=== PATIENT | female | born 1980 | race Caucasian/White ===

== ENCOUNTER 2017-01-27 16:39 | Inpatient (IN) | payer SELFPAY ==
[~2017-01-27] VITALS: Ht 121.9 cm; Wt 82.9 kg
[2017-01-27 17:54] LABS: Basophils # (auto) 0 uL; Basophils % (auto) 0.6 % (0.0-2.0); CONDITION Y; Eosinophils # (auto) 0 uL; Eosinophils % (auto) 0.4 % (0.0-7.0); Hematocrit 41.9 % (36.0-46.0); Hemoglobin 14.4 g/dL (12.2-16.2); Lymphocytes # (auto) 2.6 uL; Lymphocytes % (auto) 36.1 % (10.0-50.0); Mean Corpuscular Hemoglobin 33.8 pg (28.0-32.0); Mean Corpuscular Hgb Conc. 34.2 g/dL (32.0-36.0); Mean Corpuscular Volume 98.8 fL (80.0-100.0); Mean Platelet Volume 10.3 fL (7.4-10.4); Monocytes # (auto) 0.7 uL; Monocytes % (auto) 10.1 % (0.0-12.0); Neutrophils # (auto) 3.8 uL; Neutrophils % (auto) 52.8 % (37.0-80.0); Platelet Count (auto) 254 10^3/uL (140-450); Red Cell Distribution Width 13.1 % (11.6-16.0); White Blood Cell 7.2 10^3/uL (4.4-10.8)
[2017-01-27 18:03] LABS: Acetaminophen < 2.0 ug/mL (10-30); Salicylate < 1.7 mg/dL (2.8-20.0)
[2017-01-27 18:27] LABS: Albumin 4.3 g/dL (3.4-5.0); Alkaline Phosphatase 60 U/L (45-117); Anion Gap 12 (5-15); Aspartate Aminotransferase 16 U/L (15-37); BUN/Creatinine Ratio 17.1; Bilirubin, Total 0.9 mg/dL (0.2-1.0); Blood Urea Nitrogen 12 mg/dL (7-18); Calcium 9.5 mg/dL (8.5-10.1); Carbon Dioxide 22 mmol/L (21-32); Chloride 104 mmol/L (98-107); GFR African American 121 mL/min; GFR Non-African American 100 mL/min; Glucose 110 mg/dL (74-106); Magnesium 2.6 mg/dL (1.6-2.6); Potassium 3.3 mmol/L (3.5-5.1); Sodium 138 mmol/L (136-145); Total Protein 7.7 g/dL (6.4-8.2)
[2017-01-27] MEDS ORDERED: LORazepam 0.5 MG TAB PO PRN (22:30)
[2017-01-27] MEDS ORDERED: MORPHINE SULF INJ 2 MG/ML SYRINGE 1ML IV PRN (22:30)
[2017-01-27] MEDS ORDERED: ONDANSETRON HCL 4 MG/2 ML VIAL IV PRN (22:30)
[2017-01-27] MEDS ORDERED: ACETAMINOPHEN 500 MG TAB PO PRN (22:30)
[2017-01-27] MEDS ORDERED: HYDROcodone-ACET 5/325MG TAB PO PRN (22:30)
[2017-01-28 05:30] VITALS: BP 107/69
[2017-01-28 06:34] LABS: Basophils # (auto) 0 uL; Basophils % (auto) 0.8 % (0.0-2.0); CONDITION Y; Eosinophils # (auto) 0 uL; Eosinophils % (auto) 0.7 % (0.0-7.0); Hematocrit 38.1 % (36.0-46.0); Lymphocytes # (auto) 3.1 uL; Lymphocytes % (auto) 48.1 % (10.0-50.0); Mean Corpuscular Hgb Conc. 34.3 g/dL (32.0-36.0); Mean Corpuscular Volume 99.2 fL (80.0-100.0); Mean Platelet Volume 10.5 fL (7.4-10.4); Monocytes # (auto) 0.7 uL; Monocytes % (auto) 10.5 % (0.0-12.0); Neutrophils # (auto) 2.5 uL; Neutrophils % (auto) 39.9 % (37.0-80.0); Platelet Count (auto) 234 10^3/uL (140-450); Red Cell Distribution Width 12.9 % (11.6-16.0); White Blood Cell 6.4 10^3/uL (4.4-10.8)
[2017-01-28 06:58] LABS: BUN/Creatinine Ratio 23.5; Calcium 8.6 mg/dL (8.5-10.1)
[2017-01-28] MEDS ORDERED: LEVOTHYROXINE SODIUM 88 MCG TAB PO SCH (07:00)
[2017-01-28 07:09] LABS: Potassium 2.7 mmol/L (3.5-5.1)
[2017-01-28] MEDS ORDERED: POTASSIUM CHL 20 Meq TABLET PO ONE (07:30)
[2017-01-28 07:32] VITALS: BP 113/63
[2017-01-28 07:54] VITALS: BP 114/70
[2017-01-28] MEDS ORDERED: QUET25TA37 PO (07:55)
[2017-01-28] MEDS ORDERED: LEVO88TA4 PO (07:56)
[2017-01-28] MEDS ORDERED: PANT40TA2 PO (07:56)
[2017-01-28] MEDS ORDERED: DIVA500T53 PO (07:56)
[2017-01-28] MEDS ORDERED: ATOR10TA PO (07:56)
[2017-01-28] MEDS ORDERED: TOPI50TA32 PO (07:56)
[2017-01-28] MEDS: QUEtiapine FUMARATE 100 MG TAB PO SCH ×2 (09:56→21:37)
[2017-01-28] MEDS: TOPIRAMATE 25 MG TAB PO SCH ×2 (09:58→21:37)
[2017-01-28] MEDS ORDERED: POTASSIUM CHL 20 Meq TABLET PO SCH (10:00)
[2017-01-28 12:22] VITALS: BP 106/65
[2017-01-28 16:55] VITALS: BP 106/59
[2017-01-28] MEDS: POTASSIUM CHL 20 Meq TABLET PO SCH (21:37)
[2017-01-28 22:00] VITALS: BP 98/60
[2017-01-29 05:30] VITALS: BP 97/69
[2017-01-29] MEDS: LEVOTHYROXINE SODIUM 50 MCG TAB PO SCH (06:05)
[2017-01-29 08:13] VITALS: BP 92/65
[2017-01-29] MEDS: TOPIRAMATE 25 MG TAB PO SCH ×2 (08:48→21:49)
[2017-01-29] MEDS: POTASSIUM CHL 20 Meq TABLET PO SCH ×2 (08:48→21:49)
[2017-01-29] MEDS: QUEtiapine FUMARATE 100 MG TAB PO SCH ×2 (08:48→21:50)
[2017-01-29 11:44] LABS: Urine RBC None Seen /hpf (0 - 4)
[2017-01-29 12:00] LABS: Urine Bilirubin Negative (Negative); Urine Blood Negative /uL (Negative); Urine Color Yellow (Yellow); Urine Glucose Normal (Normal); Urine Hyaline Cast FEW /lpf (0 - 2); Urine Ketone Negative (Negative); Urine Mucus MODERATE (None Seen); Urine Nitrite Negative (Negative); Urine Squamous Epithelial Cell MANY /hpf (<5); Urine pH 6.5 (5.0-8.0)
[2017-01-29 12:30] VITALS: BP 96/48
[2017-01-29] MEDS ORDERED: NITROFURANTOIN (MONO) 100 mg CAP PO ONE (12:30)
[2017-01-29 16:32] VITALS: BP 102/63
[2017-01-29 20:00] VITALS: BP 118/72
[2017-01-29] MEDS: NITROFURANTOIN (MONO) 100 mg CAP PO SCH (21:49)
[2017-01-29 22:00] VITALS: BP 118/72
[2017-01-30 05:30] VITALS: BP 102/65
[2017-01-30 06:03] LABS: Basophils # (auto) 0 uL; Basophils % (auto) 0.6 % (0.0-2.0); Eosinophils # (auto) 0.1 uL; Hematocrit 39.6 % (36.0-46.0); Hemoglobin 13.5 g/dL (12.2-16.2); Lymphocytes # (auto) 3.8 uL; Mean Corpuscular Hemoglobin 34.6 pg (28.0-32.0); Mean Corpuscular Hgb Conc. 34.1 g/dL (32.0-36.0); Mean Corpuscular Volume 101.2 fL (80.0-100.0); Mean Platelet Volume 10.1 fL (7.4-10.4); Monocytes # (auto) 0.7 uL; Monocytes % (auto) 9.3 % (0.0-12.0); Neutrophils # (auto) 2.5 uL; Neutrophils % (auto) 35.1 % (37.0-80.0); Nucleated Red Blood Cells % 0.1 %; Platelet Count (auto) 185 10^3/uL (140-450); Red Cell Distribution Width 13.3 % (11.6-16.0); White Blood Cell 7.1 10^3/uL (4.4-10.8)
[2017-01-30 06:19] LABS: Albumin 3.3 g/dL (3.4-5.0); Calcium 8.5 mg/dL (8.5-10.1); Potassium 3.8 mmol/L (3.5-5.1)
[2017-01-30 06:23] LABS: BUN/Creatinine Ratio 23.4; Bilirubin, Total 0.6 mg/dL (0.2-1.0); Total Protein 6.1 g/dL (6.4-8.2)
[2017-01-30] MEDS: LEVOTHYROXINE SODIUM 50 MCG TAB PO SCH (06:35)
[2017-01-30 09:00] VITALS: BP 98/65
[2017-01-30] MEDS: NITROFURANTOIN (MONO) 100 mg CAP PO SCH ×2 (10:22→21:54)
[2017-01-30] MEDS: POTASSIUM CHL 20 Meq TABLET PO SCH ×2 (10:23→21:54)
[2017-01-30] MEDS: TOPIRAMATE 25 MG TAB PO SCH ×2 (10:23→21:54)
[2017-01-30 12:58] VITALS: BP 110/75
[2017-01-30 17:07] VITALS: BP 115/81
[2017-01-30 20:00] VITALS: BP 120/75
[2017-01-30 21:24] VITALS: BP 120/75
[2017-01-30] MEDS: QUEtiapine FUMARATE 100 MG TAB PO SCH (21:54)
[2017-01-31 05:29] VITALS: BP 99/59
[2017-01-31] MEDS: LEVOTHYROXINE SODIUM 50 MCG TAB PO SCH (06:34)
[2017-01-31 08:44] VITALS: BP 96/59
[2017-01-31] MEDS: POTASSIUM CHL 20 Meq TABLET PO SCH (10:00)
[2017-01-31] MEDS: NITROFURANTOIN (MONO) 100 mg CAP PO SCH (10:00)
[2017-01-31] MEDS: TOPIRAMATE 25 MG TAB PO SCH (10:00)
[2017-01-31 11:20] VITALS: BP 96/62
[2017-01-31 12:02] VITALS: BP 125/85
== END 2017-01-31 12:00 | DRG 92 ==
LOC: EDBD 16:39 → ER 16:39 → OVERFLOW 16:40 → EAST 23:33
PROVIDERS: ADMIT Nurse Practitioner Family; ATTEND Internal Medicine Pulmonary Disease
DX: G92 Toxic encephalopathy (principal); E87.1 Hypo-osmolality and hyponatremia; E44.1 Mild protein-calorie malnutrition; N39.0 Urinary tract infection, site not specified; Z68.43 Body mass index [BMI] 50.0-59.9, adult; F20.9 Schizophrenia, unspecified; E03.9 Hypothyroidism, unspecified; F31.9 Bipolar disorder, unspecified; E87.6 Hypokalemia; F17.200 Nicotine dependence, unspecified, uncomplicated; Z88.1 Allergy status to other antibiotic agents; Z88.5 Allergy status to narcotic agent; Z88.2 Allergy status to sulfonamides; Z98.51 Tubal ligation status; Z79.899 Other long term (current) drug therapy
CPT/HCPCS: 36415; 70450; 71010; 80048; 80053; 80307; 80320; 80329; 81001; 83735; 84132; 84443; 84484; 84702; 85025; 87086; 93005; 95819

== ENCOUNTER 2018-03-06 14:48 | Emergency (ER) | payer MEDICAID ==
[~2018-03-06] VITALS: Ht 152.4 cm; Wt 90.7 kg
[~2018-03-06 14:48] MED LIST: ATOR10TA PO; DIVA500T53 PO; LEVO88TA4 PO; PANT40TA2 PO; QUET25TA37 PO; TOPI50TA32 PO
[2018-03-06 18:20] VITALS: BP 133/83
[2018-03-06] MEDS ORDERED: KETOROLAC TROMETH 60MG/2ML VIAL IM ONE (19:45)
[2018-03-06] MEDS ORDERED: BACLOFEN 10 MG TAB PO ONE (19:45)
== END 2018-03-06 20:21 | disposition home or self-care (01) ==
LOC: ER 14:48
DX: G44.209 Tension-type headache, unspecified, not intractable (principal); M62.838 Other muscle spasm; F17.210 Nicotine dependence, cigarettes, uncomplicated; E07.89 Other specified disorders of thyroid; Z88.2 Allergy status to sulfonamides; Z88.8 Allergy status to other drugs, medicaments and biological substances
CPT/HCPCS: 70450; 81025; 96372; 99284; J1885

== ENCOUNTER 2018-03-14 11:27 | Emergency (ER) | payer MEDICAID ==
[~2018-03-14] VITALS: Ht 152.4 cm; Wt 87.1 kg
[2018-03-14 11:35] VITALS: BP 128/74
[2018-03-14] MEDS ORDERED: KETOROLAC TROMETH 60MG/2ML VIAL IM ONE (13:45)
== END 2018-03-14 14:10 | disposition home or self-care (01) ==
LOC: ER 11:27
DX: M72.2 Plantar fascial fibromatosis (principal); Z88.8 Allergy status to other drugs, medicaments and biological substances; Z88.5 Allergy status to narcotic agent; Z88.2 Allergy status to sulfonamides; Z79.899 Other long term (current) drug therapy
CPT/HCPCS: 82962; 96372; 99283; J1885

== ENCOUNTER 2018-06-10 23:18 | Emergency (ER) | payer MEDICAID ==
[~2018-06-10] VITALS: Ht 154.9 cm; Wt 78.0 kg
[2018-06-11 00:26] LABS: Basophils # (auto) 0 uL; Eosinophils # (auto) 0 uL; Hemoglobin 13.7 g/dL (12.2-16.2); Mean Corpuscular Hemoglobin 34.4 pg (28.0-32.0); Neutrophils # (auto) 3.1 uL; Red Blood Cells 3.98 10^6/uL (4.0-5.20)
[2018-06-11 00:28] LABS: Basophils % (auto) 0.4 % (0.0-2.0); Eosinophils % (auto) 0.6 % (0.0-7.0); Hematocrit 39.4 % (36.0-46.0); Lymphocytes # (auto) 3.3 uL; Lymphocytes % (auto) 45.6 % (10.0-50.0); Mean Corpuscular Hgb Conc. 34.7 g/dL (32.0-36.0); Mean Corpuscular Volume 99.1 fL (80.0-100.0); Monocytes # (auto) 0.8 uL; Monocytes % (auto) 11.4 % (0.0-12.0); Platelet Count (auto) 210 10^3/uL (140-450); Red Cell Distribution Width 12.5 % (11.8-14.3); White Blood Cell 7.3 10^3/uL (4.4-10.8)
[2018-06-11 00:32] LABS: Urine Pregnacy Test Negative (Negative)
[2018-06-11 00:33] LABS: Albumin 4.3 g/dL (3.4-5.0); Anion Gap 8 (5-15); BUN/Creatinine Ratio 14.5; Blood Alcohol < 3.0 mg/dL (0-5); Blood Urea Nitrogen 9 mg/dL (7-18); Calcium 8.7 mg/dL (8.5-10.1); Carbon Dioxide 28 mmol/L (21-32); Chloride 104 mmol/L (98-107); GFR African American > 60 mL/min; GFR Non-African American > 60 mL/min; Glucose 90 mg/dL (74-106); Potassium 3.3 mmol/L (3.5-5.1); Salicylate < 1.7 mg/dL (2.8-20.0); Sodium 140 mmol/L (136-145)
[2018-06-11 00:36] LABS: Alanine Aminotransferase 23 U/L (13-56); Alkaline Phosphatase 62 U/L (45-117); Aspartate Aminotransferase 15 U/L (15-37); Bilirubin, Total 0.4 mg/dL (0.2-1.0); Total Protein 7.7 g/dL (6.4-8.2)
[2018-06-11 00:41] LABS: Urine Bacteria FEW /hpf (None Seen); Urine Blood 3+ /uL (Negative); Urine Mucus FEW (None Seen); Urine Specific Gravity 1.027 (1.001-1.035); Urine WBC 17 /hpf (0 - 5)
[2018-06-11 00:42] LABS: Acetaminophen < 2.0 ug/mL (10-30)
[2018-06-11 00:49] LABS: Alcohol, Urine < 3.0 mg/dL (0-5); Amphetamine Screen, Urine NEGATIVE (NEGATIVE); Barbiturate Scree,Urine NEGATIVE (NEGATIVE); Benzodiazephine Screen, Urine NEGATIVE (NEGATIVE); Cannabinoid Screen, Urine POSITIVE (NEGATIVE); Cocaine Screen, Urine NEGATIVE (NEGATIVE); Opiate Scree,Urine NEGATIVE (NEGATIVE); Phencyclidine Screen, Urine NEGATIVE (NEGATIVE)
[2018-06-11] MEDS ORDERED: SODIUM CHLORIDE 0.9% 1,000 ML IV ONE (07:45)
[2018-06-11] MEDS ORDERED: LEVOFLOXACIN 500MG 100 ML IV ONE (10:30)
[2018-06-11] MEDS ORDERED: QUEtiapine FUMARATE 100 MG TAB PO ONE (14:45)
[2018-06-13] MEDS ORDERED: LORazepam 0.5 MG TAB PO PRN (17:45)
[2018-06-13] MEDS ORDERED: THROAT LOZENGES(CEPASTAT) MT ONE (23:15)
[2018-06-14] MEDS ORDERED: THROAT LOZENGES(CEPASTAT) MT ONE ×2 (08:00→12:15)
[2018-06-14 11:17] VITALS: BP 91/49
[2018-06-14] MEDS ORDERED: IBUPROFEN 600 MG TAB PO ONE ×2 (11:45→12:15)
== END 2018-06-14 21:45 | disposition home or self-care (01) ==
LOC: ER 23:29
DX: F23 Brief psychotic disorder (principal); F31.9 Bipolar disorder, unspecified; F12.10 Cannabis abuse, uncomplicated; T65.92XA Toxic effect of unspecified substance, intentional self-harm, initial encounter; F17.200 Nicotine dependence, unspecified, uncomplicated; N39.0 Urinary tract infection, site not specified; Z98.51 Tubal ligation status; Y92.9 Unspecified place or not applicable
CPT/HCPCS: 36415; 80053; 80164; 80307; 80320; 80329; 81001; 81025; 85025; 96365; 99284; J1956; J7030

== ENCOUNTER 2020-03-04 19:19 | Emergency (ER) | payer MEDICAID ==
[~2020-03-04] VITALS: Ht 157.5 cm; Wt 90.7 kg
[2020-03-04 19:28] VITALS: BP 113/71
== END 2020-03-04 23:32 | disposition home or self-care (01) ==
LOC: EDBD 19:19 → EDUNIT# 19:19 → ER 19:25
DX: S09.90XA Unspecified injury of head, initial encounter (principal); F17.210 Nicotine dependence, cigarettes, uncomplicated; Z79.899 Other long term (current) drug therapy; Z88.8 Allergy status to other drugs, medicaments and biological substances; Z88.2 Allergy status to sulfonamides; Z88.5 Allergy status to narcotic agent; Y08.89XA Assault by other specified means, initial encounter; Y93.89 Activity, other specified; Y92.89 Other specified places as the place of occurrence of the external cause; Y99.8 Other external cause status
CPT/HCPCS: 70450; 70486; 72125

== ENCOUNTER 2020-04-10 21:51 | Emergency (ER) | payer MEDICAID ==
[~2020-04-10] VITALS: Ht 157.5 cm; Wt 88.5 kg
[2020-04-11 00:23] LABS: Urine Bacteria FEW /hpf (None Seen); Urine Blood Negative /uL (Negative); Urine Specific Gravity 1.027 (1.001-1.035); Urine WBC 6 /hpf (0 - 5)
[2020-04-11 01:02] VITALS: BP 134/86
[2020-04-11] MEDS ORDERED: KETOROLAC TROMETH 60MG/2ML VIAL IM ONE (01:15)
== END 2020-04-11 02:37 | disposition home or self-care (01) ==
LOC: EDBD 21:51 → EDUNIT# 21:51 → ER 21:56
DX: S33.8XXA Sprain of other parts of lumbar spine and pelvis, initial encounter (principal); M54.5 Low back pain; G89.29 Other chronic pain; F17.210 Nicotine dependence, cigarettes, uncomplicated; Z79.899 Other long term (current) drug therapy; Z88.8 Allergy status to other drugs, medicaments and biological substances; Z88.2 Allergy status to sulfonamides; Z88.1 Allergy status to other antibiotic agents; X58.XXXA Exposure to other specified factors, initial encounter; Y93.89 Activity, other specified; Y92.89 Other specified places as the place of occurrence of the external cause; Y99.8 Other external cause status
CPT/HCPCS: 72220; 81001; 96372; 99284; J1885